=== PATIENT | male | born 1955 | race Caucasian/White ===

== ENCOUNTER 2017-04-17 12:55 | Inpatient (IN) | payer OTHER ==
[2017-04-17] VITALS (9 sets, daily range): BP systolic 165–189; BP diastolic 83–103; PULSE 54–76; RESP 16–20; TEMP 96.7–98.9; O2SAT 96–100
[~2017-04-17] VITALS: Ht 177.8 cm; Wt 100.7 kg
[2017-04-17] MEDS ORDERED: SODIUM CHLOR 0.9% 1000 ML INJ 1,000 ML IV ONE (13:02)
--- NOTE | 2017-04-17 13:08 | PD ---
HPI Chief Complaint: Altered Mental Status Time Seen by Provider: 13:02 Travel History International Travel<30 days: No Contact w/Intl Traveler<30days: No Traveled to known affect area: No History of Present Illness HPI 61-year-old male came [place] the emergency [place] unresponsive. As per EMS patient continued to remain unresponsive. He was last seen normal by his family at noon. Blood sugar was 225 en route. There was no family member upon patient's arrival to give further history. Patient was brought in with a GCS of 13. He was responding to commands but not speaking a lot. There appeared to be some left-sided weakness. He stroke alert was called. Rectal temperature was 98.5. [facility] Past Medical History Narrative Medical List of his past medical, surgical, social and family history was reviewed from the nursing note. Cardiovascular Problems: Yes Diabetes: Yes Social History Tobacco Use: No Allergies-Medications (Allergen,Severity, Reaction): Coded Allergies: No Known Allergies (Unverified , 04/17/17) Comments No known drug allergies. Reported Meds & Prescriptions Reported Meds & Active Scripts Active Reported Venlafaxine ER 24 HR (Venlafaxine HCl) 37.5 Mg Tab 37.5 Mg PO BID Amitriptyline (Amitriptyline HCl) 25 Mg Tab 25 Mg PO HS Pantoprazole (Pantoprazole Sodium) 40 Mg Tab 40 Mg PO DAILY Metoprolol Succinate ER 24 HR (Metoprolol Succinate) 50 Mg Tab 50 Mg PO DAILY Narrative Medication List of his home medications reviewed from the nursing note. Review of Systems Except as stated in HPI: all other systems reviewed are Neg Physical Exam Narrative GENERAL: Altered mental status, mostly nonverbal, obese, moderate distress SKIN: Focused skin assessment warm/dry. HEAD: Atraumatic. Normocephalic. EYES: Pupils equal and round. No scleral icterus. No injection or drainage. ENT: No nasal bleeding or discharge. Mucous membranes pink and moist. NECK: Trachea midline. No JVD. CARDIOVASCULAR: Regular rate and rhythm. No murmur appreciated. RESPIRATORY: No accessory muscle use. Clear to auscultation. Breath sounds equal bilaterally. GASTROINTESTINAL: Abdomen soft, non-tender, nondistended. Hepatic and splenic margins not palpable. MUSCULOSKELETAL: No obvious deformities. No clubbing. No cyanosis. No edema. NEUROLOGICAL: GCS of 13. No obvious cranial nerve deficits. Left-sided upper and lower extremity strength of 3 out of 5. Sensation was intact. Low volume speech. NIH stroke score of 3 PSYCHIATRIC: Appropriate mood and affect; insight and judgment normal. Data Data Last Documented VS Orders Diet Npo (04/17/17 Lunch) Activity Bed Rest (04/17/17 ) Electrocardiogram (04/17/17 ) I-Stat Creatinine (04/17/17 13:02) I-Stat Profile (04/17/17 13:02) Prothrombin Time / Inr (Pt) (04/17/17 13:02) Act Partial Throm Time (Ptt) (04/17/17 13:02) Complete Blood Count With Diff (04/17/17 13:) Fibrinogen (04/17/17 13:02) Creatine Kinase (Cpk) (04/17/17 13:02) Troponin I (04/17/17 13:02) Ua Includes Microscopic (04/17/17 13:02) Drug Screen, Random Urine (04/17/17 13:02) Type And Screen (04/17/17 13:02) Ct Brain W/O Iv Contrast(Rout) (04/17/17 ) Consult Neurology (04/17/17 ) Blood Glucose (04/17/17 13:02) Ecg Monitoring (04/17/17 13:02) Neuro Checks Q2HX12,Q4H (04/17/17 13:02) Nursing Bedside Swallow Assess .ONCE (04/17/17 13:02) Iv Access Insert/Monitor (04/17/17 13:02) NPO (04/17/17 13:02) Oximetry (04/17/17 13:02) Oxygen Administration (04/17/17 13:02) Sodium Chlor 0.9% 1000 Ml Inj (Ns 1000 M (04/17/17 13:02) Resp Oxygen Yasir C Titrat 1-4 L (04/17/17 13:02) Cath For Specimen (04/17/17 13:02) (Hub Use Only)Inp Phy Cons/Ref (04/17/17 ) Admit To Inpatient (04/17/17 ) Inpatient Certification (04/17/17 ) Diet 2000 Ada Cons Carb (04/17/17 Dinner) Diet Heart Healthy (04/17/17 Dinner) Activity Bed Rest (04/17/17 14:53) Vital Signs (Adult) ASHOK.Q4H (04/17/17 14:53) Comprehensive Metabolic Panel (04/18/17 06:00) Admit Order (Ed Use Only) (04/17/17 14:54) Potassium Chloride (Kcl) (04/17/17 15:00) Potassium Chlor 20 Meq Premix (Kcl 20 Me (04/17/17 15:00) Labs MDM Medical Decision Making Medical Screen Exam Complete: Yes Emergency Medical Condition: Yes Medical Record Reviewed: Yes Interpretation(s) Twelve-lead EKG was reviewed by me. Normal sinus rhythm, normal axis, nonspecific ST-T wave changes, first-degree AV block, bradycardia. Heart rate of 59 bpm. Differential Diagnosis CVA, intracranial bleed, electrolyte abnormality Narrative Course 2:52 PM given the fact that patient was showing some left-sided neurologic deficit I called a stroke alert. I discussed the case with the neurologist Dr. Aguilar wanted to hold off on the TPA till he arrived. When he came and examined the patient this neurologic deficit had completely disappeared. He agreed with admission for TIA. Meanwhile patient's blood test results of back and his electrolyte shows a potassium of 2.9 which I'll replace. Patient will be admitted. He'll be given aspirin. Critical Care Narrative Aggregate critical care time was 30 minutes. Time to perform other separately billable procedures was not included in the critical care time. My time did not include minutes spent treating any other patients simultaneously or on activities that did not directly contribute to the patient's treatment. The services I provided to this patient were to treat and/or prevent clinically significant deterioration that could result in: Severe hypokalemia, potassium drip I provided critical care services requiring my management, as noted below: Chart data review, documentation time, medication orders and management, vital sign assessments/reviewing monitor data, ordering and reviewing lab tests, ordering and interpreting/reviewing x-rays and diagnostic studies, care of the patient and discussion of the patient with the admitting physicians. Procedures EKG Prior to Arrival: Yes Physician Communication Physician Communication Dr. Aguilar Diagnosis Primary Impression: TIA (transient ischemic attack) Qualified Code: G45.9 - Transient cerebral ischemia, unspecified type Additional Impression: Hypokalemia Admitting Information Admitting Physician Requests: Admit Scripts Potassium Chloride Microencaps 20 Meq Tab20 Meq PO DAILY #10 TAB Prov:Richard Fisher MD 04/19/17 Pioglitazone (Actos)15 Mg Tab15 Mg PO DAILYAC #30 TAB Prov:Richard Fisher MD 04/19/17 Nifedipine ER 24 HR 30 Mg Tab30 Mg PO DAILY 30 Days Prov:Richard Fisher MD 04/19/17 Magnesium Oxide 241.3 Mg Jrc193 Mg PO Q12HR 5 Days Prov:Richard Fisher MD 04/19/17 Losartan (Cozaar)50 Mg Qge764 Mg PO DAILY 30 Days Prov:Richard Fisher MD 04/19/17 Gabapentin (Neurontin)400 Mg Lml320 Mg PO TID 30 Days Prov:Richard Fisher MD 04/19/17 Fluticasone Nasal [place] 50 Mcg/Act Naspr2 [place] NASAL DAILY 30 Days Prov:Richard Fisher MD 04/19/17 Aspirin (Aspirin Low Strength)81 Mg Chew81 Mg CHEW DAILY 30 Days Ref 10 Prov:Richard Fisher MD 04/19/17 Triston Cameron MD Apr 17, 2017 13:07 Total Creatine Kinase 72 U/L Troponin I LESS THAN 0.02 NG/ML Blood Type O POSITIVE Antibody Screen NEGATIVE Blood Bank Comment Urine Color YELLOW Urine Turbidity CLEAR Urine pH 8.0 Urine Specific [place] 1.015 Urine Protein NEG mg/dL Urine Glucose (UA) TRACE mg/dL Urine Ketones NEG mg/dL Urine Occult Blood NEG Urine Nitrite NEG Urine Bilirubin NEG Urine Urobilinogen LESS THAN 2.0 MG/DL Urine Leukocyte Esterase NEG Urine RBC LESS THAN 1 /hpf Urine WBC 1 /hpf Urine Transitional Epithelial <1 /hpf Cells Urine Hyaline Casts 1 /lpf Urine Opiates Screen NEG Urine Barbiturates Screen NEG Urine Amphetamines Screen NEG Urine Benzodiazepines Screen NEG Urine Cocaine Screen NEG Urine Cannabinoids Screen NEG [facility] Medical Decision Making Medical Screen Exam Complete: Yes Emergency Medical Condition: Yes Medical Record Reviewed: Yes Interpretation(s) Twelve-lead EKG was reviewed by me. Normal sinus rhythm, normal axis, nonspecific ST-T wave changes, first-degree AV block, bradycardia. Heart rate of 59 bpm. Differential Diagnosis CVA, intracranial bleed, electrolyte abnormality Narrative Course 2:52 PM given the fact that patient was showing some left-sided neurologic deficit I called a stroke alert. I discussed the case with the neurologist Dr. Aguilar wanted to hold off on the TPA till he arrived. When he came and examined the patient this neurologic deficit had completely disappeared. He agreed with admission for TIA. Meanwhile patient's blood test results of back and his electrolyte shows a potassium of 2.9 which I'll replace. Patient will be admitted. He'll be given aspirin. Critical Care Narrative Aggregate critical care time was 30 minutes. Time to perform other separately billable procedures was not included in the critical care time. My time did not include minutes spent treating any other patients simultaneously or on activities that did not directly contribute to the patient's treatment. The services I provided to this patient were to treat and/or prevent clinically significant deterioration that could result in: Severe hypokalemia, potassium drip I provided critical care services requiring my management, as noted below: Chart data review, documentation time, medication orders and management, vital sign assessments/reviewing monitor data, ordering and reviewing lab tests, ordering and interpreting/reviewing x-rays and diagnostic studies, care of the patient and discussion of the patient with the admitting physicians. Procedures EKG Prior to Arrival: Yes Physician Communication Physician Communication Dr. Aguilar Diagnosis Primary Impression: TIA (transient ischemic attack) Qualified Code: G45.9 - Transient cerebral ischemia, unspecified type Additional Impression: Hypokalemia Admitting Information Admitting Physician Requests: Admit Scripts Unable to Obtain Active Prescriptions or Reported Meds Triston Cameron MD Apr 17, 2017 13:07
--- NOTE | 2017-04-17 13:19 | RADRPT ---
EXAM DATE/TIME: 04/17/2017 13:11 [facility] COMPARISON: No previous studies available for comparison. INDICATIONS : Left sided weakness; slurred speech. RADIATION DOSE: 41.66 CTDIvol (mGy) This report was called by Dr. Mathew to Dr. Cameron at 1: 15 PM on 04/17/17. MEDICAL HISTORY : Non-responsive. SURGICAL HISTORY : Non-responsive. ENCOUNTER: Initial ACUITY: 1 day PAIN SCALE: Non-responsive LOCATION: cranial TECHNIQUE: Multiple contiguous axial images were obtained of the head. Using automated exposure control and adj ustment of the mA and/or kV according to patient size, radiation dose was kept as low as reasonably a chievable to obtain optimal diagnostic quality images. FINDINGS: CEREBRUM: The ventricles are normal for age. No evidence of midline shift, mass lesion, hemorrhage or acute in farction. No extra-axial fluid collections are seen. POSTERIOR FOSSA: The cerebellum and brainstem are intact. The 4th ventricle is midline. The cerebellopontine angle i s unremarkable. EXTRACRANIAL: The visualized portion of the orbits is intact. SKULL: The calvaria is intact. No evidence of skull fracture. CONCLUSION: No acute disease. Honorio Mathew MD on April 17, 2017 at 13:13 Board Certified Radiologist. This report was verified electronically.
[2017-04-17 13:21] LABS: I-STAT POTASSIUM 2.9 MMOL/L (3.5-4.9); I-STAT SODIUM 141 MMOL/L (138-146)
[2017-04-17 13:22] LABS: AUTOMATED NEUTROPHIL # 4.3 TH/MM3 (1.8-7.7); BASOPHIL % 0.3 % (0.0-2.0); EOSINOPHIL # 0.1 TH/MM3 (0-0.4); EOSINOPHIL % 0.9 % (0.0-4.0); HEMATOCRIT 37.7 % (39.0-51.0); HEMO FLAGS DIFF FINAL; LYMPH % 27.2 % (9.0-44.0); LYMPHOCYTE # 1.8 TH/MM3 (1.0-4.8); MEAN CELL VOLUME 85.8 FL (80.0-100.0); MEAN CORPUSCULAR HEMOGLOBIN 30.5 PG (27.0-34.0); MEAN CORPUSCULAR HGB CONC 35.6 % (32.0-36.0); MONO % 8.1 % (0.0-8.0); NEUT % 63.5 % (16.0-70.0); PLATELET COUNT 197 TH/MM3 (150-450); RED CELL DISTRIBUTION WIDTH 13.1 % (11.6-17.2); WHITE BLOOD COUNT 6.7 TH/MM3 (4.0-11.0)
[2017-04-17 13:31] LABS: APTT (PATIENT) 27.5 SEC (24.3-30.1); PROTHROMBIN TIME - PATIENT 10.9 SEC (9.8-11.6)
[2017-04-17 13:40] LABS: CREATINE KINASE 72 U/L (39-308)
[2017-04-17 14:03] LABS: BLOOD, URINE NEG (NEG); GLUCOSE,URINE TRACE mg/dL (NEG); HYALINE CAST, URINE 1 /lpf (RARE); KETONE, URINE NEG (NEG); NITRITE,URINE NEG (NEG); TRANSITIONAL EPI CELLS, URINE <1 /hpf; URINE COLOR YELLOW (YELLW/STRAW)
[2017-04-17 14:16] LABS: AMPHETAMINE, URINE NEG (NEG); BARBITURATES, URINE NEG (NEG); COCAINE, URINE NEG (NEG)
[2017-04-17] MEDS ORDERED: POTASSIUM CHLOR 20 MEQ PREMIX 100 ML IV ONE (15:00)
[2017-04-17] MEDS ORDERED: POTASSIUM CHLORIDE 20 MEQ CONTROLLED RELEASE TAB PO ONE (15:00)
--- NOTE | 2017-04-17 15:04 | MB ---
cc: RODERICK LANE MD DATE OF CONSULTATION: 04/17/2017 REASON FOR CONSULTATION Stroke Alert. HISTORY OF PRESENT ILLNESS Mr. Moreno is a 61-year-old male who [place] and he was found weak on the left side of his body. His called EMS. The EMS assessment was possible heat stroke with left-sided weakness and along with slurred speech it was called a Stroke Alert. Blood glucose was initially 225. Last seen normal at 12:00 p.m. He is a borderline diabetic and is hypertensive on hydrochlorothiazide/lisinopril and he is not on a blood thinner. Upon arrival the systolic blood pressure was in the 160s, no atrial fibrillation, slurred speech, weakness in the left upper and lower extremity. Initially NIH Stroke Scale was 5 by the ED physician and the stroke team. The head CT scan did not show any bleeding. Blood work revealed an INR of 1, platelet count 197, WBC 6.7, hemoglobin 13.4, potassium 2.9, BUN 13, creatinine 0.8, glucose 192, Urinalysis was unremarkable. UDS negative. On my evaluation the NIH stroke scale was 1 for slurred speech. No facial weakness was noted. No dysphasia. The patient has regained his muscle strength in the left upper and lower extremity. Hence the NIH Stroke Scale is 1 and the patient is not deemed a candidate for TPA given the recovery of symptoms and the low NIH Stroke Scale. The states that two weeks ago he was generally weak and felt dizzy when mowing the yard and gave him juice and he recovered, but she denies any focal weakness in arm or leg or disorientation or slurred speech. REVIEW OF SYSTEMS A 12-point review of systems is negative except for what is stated in the HPI. PAST MEDICAL HISTORY 1. Diabetes on no medication. 2. Hypertension. ALLERGIES No known allergies. FAMILY HISTORY Unremarkable. SOCIAL HISTORY Denies alcohol, smoking or illicit drug abuse. PHYSICAL EXAMINATION GENERAL: Awake, alert, oriented, not in apparent distress. HEENT: Atraumatic, normocephalic. Intact hearing. Intact vision. LUNGS: Clear to auscultation. No wheezes. HEART: Regular rate and rhythm. ABDOMEN: Soft. No tenderness. EXTREMITIES: No clubbing, cyanosis or edema. Moves extremities equally. NEUROLOGIC: Awake, alert, oriented. Mild dysarthria. No dysphasia. Intact memory. No facial asymmetry. Intact external ocular motility. Pupils are 2 mm bilateral, equally reacting to light. Muscle strength 5/5 bilateral and symmetrical upper and lower extremities. Sensation is intact. No sensory extinction. No visual field defects. Reflexes 2+ bilateral and symmetrical. Cerebellar signs intact bilaterally, however, left-sided [id number] is slower. DIAGNOSTIC IMAGING Head CT scan was reported with no acute intracranial abnormality. LABORATORY DATA Blood work revealed white blood cell count 6.7, hemoglobin 13.4, platelet count 197. INR 1. Sodium 131, potassium low at 2.9, BUN 13, creatinine 0.8. Total CK 72. UDS negative. DIAGNOSTIC IMPRESSION 1. Hypertensive urgency. 2. TIA. 3. Diabetes. PLAN 1. Neuro-checks q.4h. 2. MRI brain without contrast. 3. Carotid ultrasound. 4. Aspirin 81 mg. 5. DVT prophylaxis with SCDs. 6. Speech and swallow evaluation. Thank you for the opportunity to participate in the care of your patient. MD KIMBERLY Cardona/PATEL /2:26 PM /2:54 PM RAMON
--- NOTE | 2017-04-17 15:09 | EKG ---
Date Performed: 04/17/2017 Time Performed: 13:25:24 PTAGE: 61 years EKG: SINUS BRADYCARDIA WITH FIRST DEGREE AV BLOCK MINIMAL VOLTAGE CRITERIA FOR LVH, CONSIDER NOR MAL VARIANT NONSPECIFIC T-WAVE ABNORMALITY Cannot rule out inferior myocardial infarction ABNORMAL EC G NO PREVIOUS TRACING DOCTOR: Vitaliy Polo Interpretating Date/Time 04/17/2017 15:08:23
--- NOTE | 2017-04-17 16:33 | HHI.HP ---
HPI Service [place] [facility] Primary Care Physician Unknown Admission Diagnosis TIA, hypokalemia Diagnoses: Chief Complaint: Change in mental status Travel History International Travel<30 Days: No Contact w/Intl Traveler <30 Da: No Traveled to Known Affected Are: No History of Present Illness Patient is a 61-year-old right handed male with history of hypertension, borderline diabetes mellitus his, history of obstructive sleep apnea who was brought in by [facility] apparently son-in-law called [facility]. Patient was sitting when the patient was noted by family to be unresponsive. This was noted since family states that he was dozing off to sleep and then his legs were crossed. Knee dropped suddenly dropped and patient slipped down from his chair. shook him with no responded. This lasted for a couple of minutes. Then patient spontaneously woke up and started states "I can breath"" . There was no seizure episodes noted. But family reported some slurring of speech. Patient denies any fever chills headache nausea vomiting prior to or after the this incident. Patient was called in as a stroke alert and was promptly seen by Dr. Aguilar from neurology service. Initial head CT was negative. Patient is awake alert oriented 3 now and amnestic of event. Patient admitted for further evaluation and management. Review of Systems Constitutional: DENIES: Diaphoretic episodes, Fatigue, Fever, Weight gain, Weight loss, Chills, Dizziness, Change in appetite, Night Sweats Endocrine: DENIES: Heat/cold intolerance, Polydipsia, Polyuria, Polyphagia Eyes: DENIES: Blurred vision, Diplopia, Eye inflammation, Eye pain, Vision loss , Photosensitivity, Double Vision Ears, nose, mouth, throat: COMPLAINS OF: Hearing loss (hard of hearing) Respiratory: COMPLAINS OF: Apneas (history of obstructive sleep apnea) Cardiovascular: DENIES: Chest pain, Palpitations, Syncope, Dyspnea on Exertion , PND, Lower Extremity Edema, Orthopnea, Claudication Gastrointestinal: DENIES: Abdominal pain, Black stools, Bloody stools, Constipation, Diarrhea, Nausea, Vomiting, Difficulty Swallowing, Anorexia Genitourinary: DENIES: Sexual dysfunction, Urinary frequency, Urinary incontinence, Urgency, Hematuria, Dysuria, Nocturia, Penile Discharge, Testicular Pain, Testicular Swelling Musculoskeletal: COMPLAINS OF: Joint pain (chronic knee pain) Integumentary: DENIES: Abnormal pigmentation, Nail changes, Pruritus, Rash Hematologic/lymphatic: DENIES: Bruising, Lymphadenopathy Immunologic/allergic: DENIES: Eczema, Urticaria Neurologic: COMPLAINS OF: Paresthesias (complains of neuropathy) Psychiatric: DENIES: Anxiety, Confusion, Mood changes, Depression, Hallucinations, Agitation, Suicidal Ideation, Homicidal Ideation, Delusions Past Family Social History Past Medical History Hypertension Borderline diabetes type 2 Neuropathy unknown etiology History of obstructive sleep apnea on BiPAP Past Surgical History Left knee arthroscopic surgery Sinus surgery 3 Reported Medications Cozaar 100 mg/hydrochlorothiazide 25 mg daily Toprol-XL 50 mg daily Protonix 40 mg daily Gabapentin 400 mg 3 times a day Flonase nasal spray 2 sprays to each no sterile daily Allergies: Coded Allergies: No Known Allergies (Unverified , 04/17/17) Family History Noncontributory Social History Nonsmoker and nonalcohol drinker non-IV drug user Physical Exam Vital Signs Vital Signs Date Time Temp Pulse Resp B/P Pulse Ox O2 Delivery O2 Flow Rate FiO2 04/17/17 15:19 54 18 174/85 100 Nasal Cannula 2 04/17/17 13:20 18 97 Nasal Cannula 2 04/17/17 13:20 96 Nasal Cannula 2 04/17/17 13:12 63 18 170/103 97 Nasal Cannula 2 04/17/17 13:09 98 2.00 04/17/17 13:05 66 20 95 Room Air 04/17/17 13:01 98.9 76 20 165/92 99 Physical Exam GENERAL: This is a well-nourished, well-developed patient, in no apparent distress. SKIN: No rashes, ecchymoses or lesions. Cool and dry. HEAD: Atraumatic. Normocephalic. No temporal or scalp tenderness. EYES: Pupils equal round and reactive. Extraocular motions intact. No scleral icterus. No injection or drainage. ENT: Nose without bleeding, Throat without erythema, tonsillar hypertrophy or exudate. Uvula midline. Airway patent. NECK: Trachea midline. No JVD or lymphadenopathy. Supple, nontender, no meningeal signs. CARDIOVASCULAR: Regular rhythm without murmurs, gallops, or rubs. Heart rate 58 sinus RESPIRATORY: Clear to auscultation. Breath sounds equal bilaterally. No wheezes , rales, or rhonchi. GASTROINTESTINAL: Abdomen soft, non-tender, nondistended. No hepato-splenomegaly , or palpable masses. No guarding. MUSCULOSKELETAL: Extremities without clubbing, cyanosis, or edema. No joint tenderness, effusion, or edema noted. No calf tenderness. Negative Homans sign bilaterally. NEUROLOGICAL: Awake and alert. Cranial nerves II through XII intact. Motor and sensory grossly within normal limits. Five out of 5 muscle strength in all muscle groups. Normal speech. Grossly mild decreased sensation on both lower extremities. Per patient this is chronic from neuropathy Laboratory Laboratory Tests Test 04/17/17 04/17/17 13:06 13:35 White Blood Count 6.7 Red Blood Count 4.40 Hemoglobin 13.4 Bedside Hemoglobin 12.6 Hematocrit 37.7 Bedside Hematocrit 37.0 Mean Corpuscular Volume 85.8 Mean Corpuscular Hemoglobin 30.5 Mean Corpuscular Hemoglobin 35.6 Concent Red Cell Distribution Width 13.1 Platelet Count 197 Mean Platelet Volume 8.6 Neutrophils (%) (Auto) 63.5 Lymphocytes (%) (Auto) 27.2 Monocytes (%) (Auto) 8.1 Eosinophils (%) (Auto) 0.9 Basophils (%) (Auto) 0.3 Neutrophils # (Auto) 4.3 Lymphocytes # (Auto) 1.8 Monocytes # (Auto) 0.5 Eosinophils # (Auto) 0.1 Basophils # (Auto) 0.0 CBC Comment DIFF FINAL Differential Comment Prothrombin Time 10.9 Prothromb Time International 1.0 Ratio Activated Partial 27.5 Thromboplast Time Fibrinogen 280 Bedside Sodium 141 Bedside Potassium 2.9 Bedside Chloride 99 Bedside Blood Urea Nitrogen 13 Bedside Creatinine 0.8 Bedside Glucose 192 Total Creatine Kinase 72 Troponin I LESS THAN 0.02 Blood Type O POSITIVE Antibody Screen NEGATIVE Blood Bank Comment Urine Color YELLOW Urine Turbidity CLEAR Urine pH 8.0 Urine Specific [place] 1.015 Urine Protein NEG Urine Glucose (UA) TRACE Urine Ketones NEG Urine Occult Blood NEG Urine Nitrite NEG Urine Bilirubin NEG Urine Urobilinogen LESS THAN 2.0 Urine Leukocyte Esterase NEG Urine RBC LESS THAN 1 Urine WBC 1 Urine Transitional Epithelial <1 Cells Urine Hyaline Casts 1 Urine Opiates Screen NEG Urine Barbiturates Screen NEG Urine Amphetamines Screen NEG Urine Benzodiazepines Screen NEG Urine Cocaine Screen NEG Urine Cannabinoids Screen NEG Result Diagram: 04/17/17 1306 Imaging Last Impressions Head CT 04/17/17 0000 Signed Impressions: Service Date/Time: Monday, April 17, 2017 13:11 - CONCLUSION: No acute disease. Honorio Mathew MD Assessment and Plan Assessment and Plan 61-year-old male presenting with Decrease in mental status, syncopal episode with reported slurring of speech. TIA. Workup in process. Patient promptly seen by Dr. Aguilar from neurology service MRI of the brain. Will check a carotid ultrasound to the echo Doppler and place on telemetry. Neuro vital signs every 4. Check lipid panel in a.m. Hypertensive urgency. Will continue on Cozaar 100 mg daily. Will continue on Toprol-XL 50 mg daily with hold parameters. Hold off on hydrochlorothiazide for now with severe hyperkalemia. Vasotec IV when necessary for blood pressure greater than 160/90. Check chest x-ray. 12-lead EKG reviewed-no acute ST-T wave changes consider adding CCB Severe Hypokalemia. On further questioning per patient has history of hypokalemia and at one point was placed on potassium supplements. Patient denies taking [id number] medications or any herbal medications. Patient received 40 metastases by mouth potassium and 20 mEq IV. We'll check metabolic panel now including magnesium and phosphorus stat. Will check check a TSH. History of borderline diabetes mellitus. Will check fingersticks 3 times a day and at bedtime and monitor for now. Will check a hemoglobin A1c. History of neuropathy etiology unknown Will continue on Neurontin 3 times a day. History of hiatal hernia. Continue on Protonix 40 mg daily. History of allergic rhinitis. Continue on Flonase nasal spray 2 sprays to each nostril daily. History of SHIRA- instruct family to bring in his BiPAP machine for use tonight Lovenox for DVT prophylaxis. Discussed Condition With Patient and family at bedside. Physician Certification 2 Midnight Certification Type: Admission for Inpatient Services Order for Inpatient Services The services are ordered in accordance with Medicare regulations or non- Medicare payer requirements, as applicable. In the case of services not specified as inpatient-only, they are appropriately provided as inpatient services in accordance with the 2-midnight benchmark. Estimated LOS (days): 3 days is the estimated time the patient will need to remain in the hospital, assuming treatment plan goals are met and no additional complications. Post-Hospital Plan: Not yet determined Richard Fisher MD Apr 17, 2017 16:33
[2017-04-17] MEDS ORDERED: GLUCAGON 1 MG/ML VIAL OTHER PRN (16:45)
[2017-04-17] MEDS ORDERED: DEXTROSE 50% IN WATER 50 ML VIAL(D50) IV PRN (16:45)
[2017-04-17] MEDS ORDERED: ENALAPRILAT 1.25 MG/ML VIAL IV PUSH PRN (16:45)
[2017-04-17] MEDS ORDERED: PANT40TA3 PO (17:11)
[2017-04-17] MEDS ORDERED: GABA400C5 PO (17:11)
[2017-04-17] MEDS ORDERED: AMIT25TA9 PO (17:11)
[2017-04-17] MEDS ORDERED: LOSA100T2 PO (17:11)
[2017-04-17] MEDS ORDERED: VENL37.54 PO (17:11)
[2017-04-17] MEDS ORDERED: METO50TA11 PO (17:11)
--- NOTE | 2017-04-17 17:24 | RADRPT ---
EXAM DATE/TIME: 04/17/2017 16:20 [facility] COMPARISON: No previous studies available for comparison. INDICATIONS : Stroke alert MEDICAL HISTORY : None. SURGICAL HISTORY : None. ENCOUNTER: Initial ACUITY: 1 day PAIN SCORE: 0/10 LOCATION: Bilateral chest FINDINGS: A single view of the chest demonstrates the lungs to be symmetrically aerated without evidence of mas s, infiltrate or effusion. The cardiomediastinal contours are unremarkable. Osseous structures are intact. CONCLUSION: 1. No acute cardiopulmonary findings. Luis Pearson MD on April 17, 2017 at 17:19 Board Certified Radiologist. This report was verified electronically.
[2017-04-17 17:45] LABS: ALKALINE PHOSPHATASE 63 U/L (45-117); ALT (GPT) 36 U/L (12-78); ANION GAP 11 MEQ/L (5-15); AST (GOT) 19 U/L (15-37); BICARBONATE 27.2 MEQ/L (21.0-32.0); BLOOD UREA NITROGEN 13 MG/DL (7-18); CHLORIDE 104 MEQ/L (98-107); GLOMERULAR FILTRATION RATE 78 ML/MIN (>89); MAGNESIUM 1.9 MG/DL (1.5-2.5); SODIUM (NA) 142 MEQ/L (136-145); TOTAL BILIRUBIN ADULT 0.6 MG/DL (0.2-1.0)
[2017-04-17 17:50] LABS: CREATINE KINASE 72 U/L (39-308)
[2017-04-17 17:52] LABS: POTASSIUM 2.9 MEQ/L (3.5-5.1)
[2017-04-17] MEDS ORDERED: POTASSIUM PHOSPHATE INJ 30 MMOL in SODIUM CHLOR 0.9% 250 ML INJ 250 ML IV ONE ×2 (18:15→21:00)
--- NOTE | 2017-04-17 18:51 | RADRPT ---
EXAM DATE/TIME: 04/17/2017 18:08 [facility] COMPARISON: No previous studies available for comparison. INDICATIONS : Transient ischemic attack. MEDICAL HISTORY : Hypertension. Hearing loss. Apnea. Paresthesia. Neuropathy. SURGICAL HISTORY : Left knee surgery. ENCOUNTER: Initial ACUITY: 1 day PAIN SCORE: 0/10 LOCATION: Bilateral neck PEAK SYSTOLIC VELOCITIES (cm/sec): ICA/CCA RATIO: Right: 0.9 Left: 0.9 ICA: Right: 74 Left: 85 CCA: Right: 79 Left: 96 ECA: Right: 67 Left: 66 VERTEBRAL: Right: 72 antegrade Left: 58 antegrade Elevated flow velocities and ICA/CCA ratios have been found to correlate with increased degrees of vessel stenosis, calculated as percentage of diameter relative to a normal segment of distal ICA/CCA FINDINGS: RIGHT CAROTID: No significant stenosis is visualized. The waveforms are within normal limits. LEFT CAROTID: No significant stenosis is visualized. The waveforms are within normal limits. VERTEBRAL ARTERIES: Antegrade flow is seen in both vertebral arteries. MISCELLANEOUS: None. CONCLUSION: Carotid ultrasound within normal limits. No significant plaque or narrowing on either side. Bryant Zuluaga MD on April 17, 2017 at 18:48 Board Certified Radiologist. This report was verified electronically.
[2017-04-17] MEDS: ASPIRIN 81 MG CHEW TAB CHEW SCH (20:33)
[2017-04-17] MEDS: POTASSIUM CHLOR 10 MEQ PREMIX 100 ML IV SCH ×2 (20:34→22:22)
[2017-04-17] MEDS: MAGNESIUM OXIDE 400 MG TAB PO SCH (20:34)
[2017-04-17 22:12] LABS: HEMOGLOBIN Ao 83.5 %; HEMOGLOBIN LA1C 2.5 %; HEMOGLOBIN P3 3.8 %
[2017-04-18] VITALS (9 sets, daily range): BP systolic 131–162; BP diastolic 66–80; PULSE 57–66; RESP 17–20; TEMP 95.3–99.3; O2SAT 92–98
[2017-04-18] MEDS: POTASSIUM CHLOR 10 MEQ PREMIX 100 ML IV SCH (00:46)
[2017-04-18 07:52] LABS: ALKALINE PHOSPHATASE 62 U/L (45-117); ALT (GPT) 31 U/L (12-78); ANION GAP 11 MEQ/L (5-15); AST (GOT) 18 U/L (15-37); BICARBONATE 26.3 MEQ/L (21.0-32.0); BLOOD UREA NITROGEN 9 MG/DL (7-18); CHLORIDE 104 MEQ/L (98-107); GLOMERULAR FILTRATION RATE 104 ML/MIN (>89); HDL CHOLESTEROL 35.6 MG/DL (40.0-60.0); LDL CHOLESTEROL 94 MG/DL (0-99); POTASSIUM 3.6 MEQ/L (3.5-5.1); SODIUM (NA) 141 MEQ/L (136-145); TOTAL BILIRUBIN ADULT 0.6 MG/DL (0.2-1.0)
[2017-04-18] MEDS: LOSARTAN 50 MG TAB PO SCH (08:49)
[2017-04-18] MEDS: PANTOPRAZOLE SOD 40 MG DELAYED RELEASE TAB PO SCH (08:49)
[2017-04-18] MEDS: MAGNESIUM OXIDE 400 MG TAB PO SCH ×2 (08:50→22:08)
[2017-04-18] MEDS: ASPIRIN 81 MG CHEW TAB CHEW SCH (08:50)
[2017-04-18] MEDS: METOPROLOL SUCCINATE 50 MG EXTENDED RELEASE TAB PO SCH (08:50)
[2017-04-18] MEDS: FLUTICASONE PROPIONATE 50 MCG/ACT 16 GM NASAL SPRAY NASAL SCH (08:51)
[2017-04-18] MEDS ORDERED: INFLUENZA VIRUS VACCINE (QUADRIVALENT) 0.5 ML SYR IM ONE (10:00)
--- NOTE | 2017-04-18 10:28 | RADRPT ---
EXAM DATE/TIME: 04/18/2017 10:15 [facility] COMPARISON: CHEST SINGLE AP, April 17, 2017, 16:20. INDICATIONS : Clear for MRI. MEDICAL HISTORY : None. SURGICAL HISTORY : None. ENCOUNTER: Initial ACUITY: 1 day PAIN SCORE: 0/10 LOCATION: Bilateral Orbits FINDINGS: Limited examination of the orbits was performed. There is no evidence of fracture involving the bony structures surrounding the orbits. The maxillary sinuses appear to be well aerated. No radiopaque foreign bodies are seen in the soft tissues. CONCLUSION: 1. No metallic foreign bodies identified. Patient is cleared for MRI. Luis Pearson MD on April 18, 2017 at 10:26 Board Certified Radiologist. This report was verified electronically.
--- NOTE | 2017-04-18 11:26 | HHI.PR ---
Subjective Remarks had a good night- no complains went for MRI Objective Vitals Vital Signs Date Time Temp Pulse Resp B/P Pulse Ox O2 Delivery O2 Flow Rate FiO2 04/18/17 08:00 96.3 66 20 155/80 94 04/18/17 04:58 99.3 65 20 155/78 96 04/18/17 00:58 94 21 04/18/17 00:18 99.0 61 20 151/74 97 04/17/17 22:34 59 04/17/17 20:20 97.3 60 20 165/83 97 04/17/17 17:44 96.7 57 16 188/87 98 04/17/17 17:13 58 20 189/88 99 Nasal Cannula 2 04/17/17 15:19 54 18 174/85 100 Nasal Cannula 2 04/17/17 13:20 18 97 Nasal Cannula 2 04/17/17 13:20 96 Nasal Cannula 2 04/17/17 13:20 96 Nasal Cannula 2.00 04/17/17 13:12 63 18 170/103 97 Nasal Cannula 2 04/17/17 13:09 98 2.00 04/17/17 13:05 66 20 95 Room Air 04/17/17 13:01 98.9 76 20 165/92 99 I/O 04/17/17 04/17/17 04/17/17 04/18/17 04/18/17 04/18/17 07:00 15:00 23:00 07:00 15:00 23:00 Intake Total 1171 ml Output Total 1400 ml 700 ml 1000 ml Balance -1400 ml 471 ml -1000 ml Intake IV Total 1171 ml Output Urine Total 1400 ml 700 ml 1000 ml Result Diagram: 04/17/17 1306 04/18/17 0642 Imaging Last Impressions Orbit X-Ray 04/18/17 0000 Signed Impressions: Service Date/Time: Tuesday, April 18, 2017 10:15 - CONCLUSION: 1. No metallic foreign bodies identified. Patient is cleared for MRI. Luis Pearson MD Head CT 04/17/17 0000 Signed Impressions: Service Date/Time: Monday, April 17, 2017 13:11 - CONCLUSION: No acute disease. Honorio Mathew MD Chest X-Ray 04/17/17 0000 Signed Impressions: Service Date/Time: Monday, April 17, 2017 16:20 - CONCLUSION: 1. No acute cardiopulmonary findings. Luis Pearson MD Carotid Artery Ultrasound 04/17/17 0000 Signed Impressions: Service Date/Time: Monday, April 17, 2017 18:08 - CONCLUSION: Carotid ultrasound within normal limits. No significant plaque or narrowing on either side. Bryant Zuluaga MD Objective Remarks awake and alert, NAD anicteric lungs clear regular rhythm abdomen soft, nontender extremities no edema neuro exam-unremarkable Assessment to: Remove Date of Removal: Apr 18, 2017 A/P Assessment and Plan 61-year-old male presenting with Decrease in mental status, syncopal episode with reported slurring of speech.- possible TIA. Workup in progress. Patient promptly seen by Dr. Aguilar from neurology service MRI of the brain- pending .work up in progress Neuro vital signs every 4. lipid panel - pending check EEG Hypertensive urgency.- better readings but not ideal Will continue on Cozaar 100 mg daily. Will continue on Toprol-XL 50 mg daily with hold parameters. Add CCB Procardia 30 mf XL daily Hold off on hydrochlorothiazide for now with severe hypokalemia. Vasotec IV when necessary for blood pressure greater than 160/90. CXR reviewed by me- unremarkable. 12-lead EKG reviewed-no acute ST-T wave changes Severe Hypokalemia - improved Hypophosphatemia- replaced- recheck P04 now History of borderline diabetes mellitus. Will check fingersticks 3 times a day and at bedtime and monitor for now. History of neuropathy etiology unknown Will continue on Neurontin 3 times a day. History of hiatal hernia. Continue on Protonix 40 mg daily. History of allergic rhinitis. Continue on Flonase nasal spray 2 sprays to each nostril daily. History of SHIRA- instruct family to bring in his BiPAP machine for use t Lovenox for DVT prophylaxis. PT/OT consult Richard Fisher MD Apr 18, 2017 11:26
[2017-04-18] MEDS: GABAPENTIN 400 MG CAP PO SCH ×2 (11:57→17:21)
[2017-04-18] MEDS: POTASSIUM CHLORIDE 20 MEQ CONTROLLED RELEASE TAB PO SCH (12:14)
[2017-04-18] MEDS: NIFEdipine 30 MG SUSTAINED RELEASE TAB PO SCH (12:14)
--- NOTE | 2017-04-18 13:12 | RADRPT ---
EXAM DATE/TIME: 04/18/2017 10:52 [facility] COMPARISON: No previous studies available for comparison. INDICATIONS : Syncope with left sided weakness. MEDICAL HISTORY : Hypertension. Diabetes mellitus type 2. SURGICAL HISTORY : knee arthroscopy, sinus surgery ENCOUNTER: Subsequent ACUITY: 1 day PAIN SCORE: 0/10 LOCATION: cranial TECHNIQUE: Multiplanar, multisequence MRI of the brain was performed without contrast. FINDINGS: CEREBRUM: The ventricles are normal for age. No evidence of midline shift, mass lesion, hemorrhage or acute in farction. No extraaxial fluid collections are seen. The pituitary gland and suprasellar cistern are normal in configuration. WHITE MATTER: No significant signal abnormalities are seen in the white matter. POSTERIOR FOSSA: The cerebellum and brainstem are intact. The 4th ventricle is midline. The cerebellopontine angle is unremarkable. The cerebellar tonsils are normal in position. DIFFUSION IMAGING: No focal areas of restricted diffusion are seen. No evidence of acute infarction. EXTRACRANIAL: The visualized portions of the orbits and paranasal sinuses are unremarkable. CONCLUSION: Normal examination. No evidence of acute infarct, hemorrhage, mass or edema. Ramiro Salmon MD on April 18, 2017 at 13:08 Board Certified Radiologist. This report was verified electronically.
--- NOTE | 2017-04-18 14:16 | MG ---
cc: RUBY DEGROOT M.D., ALFEA M. M.D. Lab No: [id number] Date:04/18/2017 Age: 61 Sex: M Race: DATE OF : 1955 61 REFERRING PHYSICIAN Phillip. HISTORY: This is a stat study at 1:00 o'clock in room 1525. CT negative. MRI taken but no report. HISTORY OF PRESENT ILLNESS: This is a 61-year-old man a stroke alert found unresponsive with left-sided weakness, slurred speech with a change in mental status. Episode of numbness, history of borderline diabetes, hypertension, sleep apnea, neuropathy on Neurontin, Cozaar, Protonix, Toprol, magnesium aspirin, Vasotec. DESCRIPTION OF RECORD: There is some mild slowing predominately 6 Hz theta frequency noted. Lower amplitude noted that he is asleep, snoring. Mostly theta frequency. EKG looks like possible arrhythmia as difficult to tell. There is no epileptiform features. There is a mild driving response with photic stimulation. IMPRESSION Mildly slow EEG consistent with likely a mild encephalopathy no epileptic activity. MD ELIZABETH Acevedo/immanuel /2:03 PM /2:15 PM
--- NOTE | 2017-04-18 16:36 | ECHRPT ---
Indication: CVA/TIA CONCLUSIONS Normal left ventricular size. Mild concentric left ventricular hypertrophy. The left ventricular systolic function is normal with an estimated ejection fraction in the range of 55-60%. Trace mitral valve regurgitation. Mild mitral annular calcification. There is trace tricuspid valve regurgitation. There is estimated mild pulmonary hypertension present (43 mmHg). BP: 188 / 87 HR: 98 Rhythm: Sinus MEASUREMENTS (Male / Female) Normal Values Technical Quality:Good 2D ECHO LV Diastolic Diameter PLAX 4.6 cm 4.2 - 5.9 / 3.9 - 5.3 cm LV Systolic Diameter PLAX 3.2 cm IVS Diastolic Thickness 0.9 cm 0.6 - 1.0 / 0.6 - 0.9 cm LVPW Diastolic Thickness 0.8 cm 0.6 - 1.0 / 0.6 - 0.9 cm LV Relative Wall Thickness 0.4 RV Internal Dim ED PLAX 2.2 cm LA Systolic Diameter LX 3.5 cm 3.0 - 4.0 / 2.7 - 3.8 cm M-MODE Aortic Root Diameter MM 3.3 cm AV Cusp Separation MM 2.3 cm DOPPLER Mitral E Point Velocity 71.1 cm/s Mitral A Point Velocity 77.5 cm/s Mitral E to A Ratio 0.9 LV E' Lateral Velocity 9.7 cm/s Mitral E to LV E' Lateral Ratio 7.4 LV E' Septal Velocity 8.2 cm/s Mitral E to LV E' Septal Ratio 8.7 TR Peak Velocity 288.0 cm/s TR Peak Gradient 33.2 mmHg FINDINGS LEFT VENTRICLE Normal left ventricular size. Mild concentric left ventricular hypertrophy. The left ventricular systolic function is normal with an estimated ejection fraction in the range of 55-60%. RIGHT VENTRICLE Normal right ventricular size and systolic function. LEFT ATRIUM The left atrial size is normal. RIGHT ATRIUM The right atrial size is normal. ATRIAL SEPTUM Normal atrial septal thickness without atrial level shunting by limited color doppler interrogation. AORTA The aortic root and proximal ascending aorta are normal in size on limited imaging. MITRAL VALVE Trace mitral valve regurgitation. Mild mitral annular calcification. AORTIC VALVE Trileaflet aortic valve. No aortic valve stenosis or regurgitation. TRICUSPID VALVE There is trace tricuspid valve regurgitation. There is estimated mild pulmonary hypertension present (43 mmHg). PULMONARY VALVE The pulmonary valve is not well visualized. VESSELS The inferior vena cava is normal in size. PERICARDIUM No pericardial effusion. OTHER FINDINGS No source of embolism appreciated Brittany Baer MD, FACC (Electronically Signed) Final Date:18 April 2017 16:35
--- NOTE | 2017-04-18 16:52 | HHI.PR ---
Review/Management Diagnosis 1. Hypertensive urgency. 2. TIA. 3. Diabetes. 4. Electrolyte imbalance, resolved Plan - Neurologic exam is non-focal - Neurologic tests are unremarkable - MRA head - Aspirin 81 mg. - DVT prophylaxis with SCDs. - I explained to the family at bed side the current neurologic status and plan of care Diagnosis/Plan: Subjective Subjective Comments Patient was witnessed with right facial drooping, UE shaking, and twitches of the right hand, during the episode he was awake, aware, able to hear and see, however, unable to respond, no reported foaming, tongue biting or loss of sphincter control Patient has complete recall of the episode Lasted about 10 minutes as per A STAT EEG did not reveal an ictal activity, but for an encephalopathic pattern MRI brain revealed no acute intracranial abnormality Cardiac ECHO revealed EF 55-60% CUS is unremarkable for a significant stenosis Active Medications Current Medications Medications (Trade) Dose Ordered Sig/Yasmeen Route Start Time Stop Time Status Last Admin (Cozaar) 100 mg DAILY PO 04/18/17 09:00 04/18/17 08:49 (Aspirin Chew) 81 mg DAILY CHEW 04/17/17 17:15 04/18/17 08:50 (Protonix) 40 mg DAILY PO 04/18/17 09:00 04/18/17 08:49 (Toprol Xl) 50 mg DAILY PO 04/18/17 09:00 04/18/17 08:50 (Vasotec Inj) 1.25 mg Q6H PRN IV PUSH 04/17/17 16:45 04/18/17 11:58 (D50w (Vial) Inj) 50 ml UNSCH PRN IV 04/17/17 16:45 (Glucagon Inj) 1 mg UNSCH PRN OTHER 04/17/17 16:45 (Flonase Yasir Spr) 2 spray DAILY NASAL 04/18/17 09:00 (Mag-Ox) 400 mg Q12HR PO 04/17/17 21:00 04/18/17 08:50 (Procardia Xl) 30 mg DAILY PO 04/18/17 12:00 04/18/17 12:14 (KCl) 20 meq DAILY PO 04/18/17 12:00 04/18/17 12:14 (Effexor Xr) 37.5 mg BID PO 04/18/17 21:00 (Neurontin) 400 mg TID PO 04/18/17 13:00 04/18/17 11:57 Allergies Allergies Coded Allergies No Known Allergies (Unverified04/17/17) Exam I&O / VS 04/17/17 04/17/17 04/18/17 15:00 23:00 07:00 Intake Total 1171 ml Output Total 1400 ml 700 ml Balance -1400 ml 471 ml IV Total 1171 ml Output Urine Total 1400 ml 700 ml Vital Signs Date Time Temp Pulse Resp B/P Pulse Ox O2 Delivery O2 Flow Rate FiO2 04/18/17 16:04 98.5 61 20 131/66 96 04/18/17 14:46 92 21 04/18/17 12:00 95.3 57 20 162/78 98 04/18/17 10:20 61 04/18/17 08:00 96.3 66 20 155/80 94 04/18/17 04:58 99.3 65 20 155/78 96 04/18/17 00:58 94 21 04/18/17 00:18 99.0 61 20 151/74 97 04/17/17 22:34 59 04/17/17 20:20 97.3 60 20 165/83 97 04/17/17 17:44 96.7 57 16 188/87 98 04/17/17 17:13 58 20 189/88 99 Nasal Cannula 2 Exam Comments GENERAL: Awake, alert, oriented, not in apparent distress. HEENT: Atraumatic, normocephalic. Intact hearing. Intact vision. LUNGS: Clear to auscultation. No wheezes. HEART: Regular rate and rhythm. ABDOMEN: Soft. No tenderness. EXTREMITIES: No clubbing, cyanosis or edema. Moves extremities equally. NEUROLOGIC: Awake, alert, oriented. No dysarthria. No dysphasia. Intact memory. No facial asymmetry. Intact external ocular motility. Pupils are 2 mm bilateral, equally reacting to light. Muscle strength 5/5 bilateral and symmetrical upper and lower extremities. Sensation is intact. No sensory extinction. No visual field defects. Reflexes 2+ bilateral and symmetrical. Cerebellar signs are intact b/l Objective Radiology Results Last 72 hours Impressions Orbit X-Ray 04/18/17 0000 Signed Impressions: Service Date/Time: Tuesday, April 18, 2017 10:15 - CONCLUSION: 1. No metallic foreign bodies identified. Patient is cleared for MRI. Luis Pearson MD Head Magnetic Resonance Angiography 04/18/17 0000 Signed Impressions: Service Date/Time: Tuesday, April 18, 2017 18:48 - CONCLUSION: Mild and short segment narrowing of the right posterior cerebral artery as above. Otherwise normal. Bryant Zuluaga MD Brain MRI 04/18/17 0000 Signed Impressions: Service Date/Time: Tuesday, April 18, 2017 10:52 - CONCLUSION: Normal examination. No evidence of acute infarct, hemorrhage, mass or edema. Ramiro Salmon MD Head CT 04/17/17 0000 Signed Impressions: Service Date/Time: Monday, April 17, 2017 13:11 - CONCLUSION: No acute disease. Honorio Mathew MD Chest X-Ray 04/17/17 0000 Signed Impressions: Service Date/Time: Monday, April 17, 2017 16:20 - CONCLUSION: 1. No acute cardiopulmonary findings. Luis Pearson MD Carotid Artery Ultrasound 04/17/17 0000 Signed Impressions: Service Date/Time: Monday, April 17, 2017 18:08 - CONCLUSION: Carotid ultrasound within normal limits. No significant plaque or narrowing on either side. Bryant Zuluaga MD Micro and Labs Laboratory Tests Test 04/18/17 06:42 Sodium Level 141 Potassium Level 3.6 Chloride Level 104 Carbon Dioxide Level 26.3 Anion Gap 11 Blood Urea Nitrogen 9 Creatinine 0.76 Estimat Glomerular Filtration 104 Rate Random Glucose 138 Calcium Level 7.8 Phosphorus Level 3.6 Total Bilirubin 0.6 Aspartate Amino Transf 18 (AST/SGOT) Alanine Aminotransferase 31 (ALT/SGPT) Alkaline Phosphatase 62 Total Protein 6.2 Albumin 3.2 Triglycerides Level 163 Cholesterol Level 162 LDL Cholesterol 94 HDL Cholesterol 35.6 Cholesterol/HDL Ratio 4.55 Toby Aguilar MD Apr 18, 2017 16:52
[2017-04-18] MEDS ORDERED: LORazepam 2 MG/ML VIAL IV PUSH ONE (18:00)
--- NOTE | 2017-04-18 20:08 | RADRPT ---
EXAM DATE/TIME: 04/18/2017 18:48 [facility] COMPARISON: MRI BRAIN W/O CONTRAST, April 18, 2017, 10:52. US CAROTID ARTERIES, April 17, 2017, 18:08. CT BRAIN W /O CONTRAST, April 17, 2017, 13:11. INDICATIONS : TIA. MEDICAL HISTORY : Hypertension. Diabetes mellitus type 2. SURGICAL HISTORY : Knee arthroscopy, sinus surgery. ENCOUNTER: Subsequent ACUITY: 1 day PAIN SCORE: 0/10 LOCATION: cranial Please note a normal MRA of the brain does not entirely exclude the possibility of a small aneurysm, nor the possibility of distal intracranial vessel disease. TECHNIQUE: 3D time of flight MRA was performed. Source images, multiplanar STS MIP, and 3D volume MIP reconstru ctions were reviewed. FINDINGS: Less than 3 mm long luminal irregularity with mild stenosis seen proximal P2 segment of the right pos terior cerebral artery. This is likely on the basis of intracranial atherosclerosis. There is normal filling downstream. Otherwise normal caliber intracranial arteries. No aneurysm. CONCLUSION: Mild and short segment narrowing of the right posterior cerebral artery as above. Otherwise normal. Bryant Zuluaga MD on April 18, 2017 at 20:04 Board Certified Radiologist. This report was verified electronically.
[2017-04-18] MEDS ORDERED: GABAPENTIN 400 MG CAP PO SCH (21:00)
[2017-04-18] MEDS: VENLAFAXINE HCL XR 37.5 MG CAP PO SCH (22:08)
[2017-04-18] MEDS: AMITRIPTYLINE HCL 25 MG TAB PO SCH (22:08)
[2017-04-19] VITALS (8 sets, daily range): BP systolic 127–136; BP diastolic 65–76; PULSE 52–68; RESP 16–20; TEMP 96.2–98.2; O2SAT 94–99
[2017-04-19] MEDS: MAGNESIUM OXIDE 400 MG TAB PO SCH ×2 (09:00→21:00)
[2017-04-19] MEDS ORDERED: PANTOPRAZOLE SOD 40 MG DELAYED RELEASE TAB PO SCH (09:00)
[2017-04-19] MEDS: FLUTICASONE PROPIONATE 50 MCG/ACT 16 GM NASAL SPRAY NASAL SCH (09:00)
[2017-04-19 09:21] LABS: BICARBONATE 24.9 MEQ/L (21.0-32.0); POTASSIUM 3.5 MEQ/L (3.5-5.1)
[2017-04-19] MEDS: PANTOPRAZOLE SOD 40 MG DELAYED RELEASE TAB PO SCH (09:23)
[2017-04-19] MEDS: GABAPENTIN 400 MG CAP PO SCH ×3 (09:24→17:58)
[2017-04-19] MEDS: VENLAFAXINE HCL XR 37.5 MG CAP PO SCH ×2 (09:24→21:20)
[2017-04-19] MEDS: NIFEdipine 30 MG SUSTAINED RELEASE TAB PO SCH (09:24)
[2017-04-19] MEDS: POTASSIUM CHLORIDE 20 MEQ CONTROLLED RELEASE TAB PO SCH (09:25)
[2017-04-19] MEDS: LOSARTAN 50 MG TAB PO SCH (09:26)
[2017-04-19] MEDS: METOPROLOL SUCCINATE 50 MG EXTENDED RELEASE TAB PO SCH (09:27)
[2017-04-19] MEDS: ASPIRIN 81 MG CHEW TAB CHEW SCH (09:27)
[2017-04-19] MEDS ORDERED: metFORMIN HCL 500 MG TAB PO SCH (13:45)
--- NOTE | 2017-04-19 14:06 | HHI.PR ---
Subjective Remarks patient doing great no headachens nausea or vomiting, weakness or Objective Vitals Vital Signs Date Time Temp Pulse Resp B/P Pulse Ox O2 Delivery O2 Flow Rate FiO2 04/19/17 12:50 96.2 59 20 127/65 94 04/19/17 11:39 95 04/19/17 08:42 96.6 66 20 136/75 95 04/19/17 08:00 52 04/19/17 05:45 97.7 64 20 128/68 99 04/19/17 00:00 98.1 68 18 130/75 96 04/18/17 20:00 98.7 65 17 133/72 95 04/18/17 16:04 98.5 61 20 131/66 96 04/18/17 14:46 92 21 I/O 04/18/17 04/18/17 04/18/17 04/19/17 04/19/17 04/19/17 06:59 14:59 22:59 06:59 14:59 22:59 Intake Total 1171 ml 480 ml 650 ml 900 ml Output Total 700 ml 2000 ml Balance 471 ml -1520 ml 650 ml 900 ml Intake Oral 480 ml 650 ml 900 ml IV Total 1171 ml Output Urine Total 700 ml 2000 ml # Voids 2 2 # Bowel Movements 0 0 0 Result Diagram: 04/17/17 1306 04/19/17 0803 Imaging Last Impressions Orbit X-Ray 04/18/17 0000 Signed Impressions: Service Date/Time: Tuesday, April 18, 2017 10:15 - CONCLUSION: 1. No metallic foreign bodies identified. Patient is cleared for MRI. Luis Pearson MD Head Magnetic Resonance Angiography 04/18/17 0000 Signed Impressions: Service Date/Time: Tuesday, April 18, 2017 18:48 - CONCLUSION: Mild and short segment narrowing of the right posterior cerebral artery as above. Otherwise normal. Bryant Zuluaga MD Brain MRI 04/18/17 0000 Signed Impressions: Service Date/Time: Tuesday, April 18, 2017 10:52 - CONCLUSION: Normal examination. No evidence of acute infarct, hemorrhage, mass or edema. Ramiro Salmon MD Head CT 04/17/17 0000 Signed Impressions: Service Date/Time: Monday, April 17, 2017 13:11 - CONCLUSION: No acute disease. Honorio Mathew MD Chest X-Ray 04/17/17 0000 Signed Impressions: Service Date/Time: Monday, April 17, 2017 16:20 - CONCLUSION: 1. No acute cardiopulmonary findings. Luis Pearson MD Carotid Artery Ultrasound 04/17/17 0000 Signed Impressions: Service Date/Time: Monday, April 17, 2017 18:08 - CONCLUSION: Carotid ultrasound within normal limits. No significant plaque or narrowing on either side. Bryant Zuluaga MD Objective Remarks awake and alert, NAD anicteric lungs clear regular rhythm abdomen soft, nontender extremities no edema neuro exam-unremarkable Date of Removal: Apr 18, 2017 A/P Assessment and Plan 61-year-old male presenting with Decrease in mental status, syncopal episode with reported slurring of speech.- possible TIA. - RESOLved MRI/MRA unremarkable. ECho novalvular deformity. Carotid US- no significant stenosis EEG no epileptiform activity ASA Hypertensive urgency.- improved Will continue on Cozaar 100 mg daily. Will continue on Toprol-XL 50 mg daily with hold parameters. Add CCB Procardia 30 mf XL daily DC hydrochlorothiazide for now with severe hypokalemia. CXR reviewed by me- unremarkable. 12-lead EKG reviewed-no acute ST-T wave changes Severe Hypokalemia - improved Hypophosphatemia- replaced- recheck P04 now History of borderline diabetes mellitus. A1C 7.0 as OP- was on Metformin at one point but had adverse GI reactions STart Actos 15 mg po daily and monitor blood sugars- per and patient they have supplies. d./w them goals HYpertriglyceridemia -dietitian consult for cousnelling History of neuropathy etiology-likely DM nephropathy Will continue on Neurontin 3 times a day. History of hiatal hernia. Continue on Protonix 40 mg daily. History of allergic rhinitis. Continue on Flonase nasal spray 2 sprays to each nostril daily. History of SHIRA- instruct family to bring in his BiPAP machine for use t Lovenox for DVT prophylaxis. DC today if cleared with Dr Aguilar OP ff up with PCP in [place] OP ff up with Neurology in [place]- Dr. Aguilar told them that he will give them a neurologist to ff up with there Richard Fisher MD Apr 19, 2017 14:06
[2017-04-19] MEDS ORDERED: COZA50TA PO (14:11)
[2017-04-19] MEDS ORDERED: FLUT50SP NASAL (14:11)
[2017-04-19] MEDS ORDERED: MAGN400T3 PO (14:11)
[2017-04-19] MEDS ORDERED: NEUR400C PO (14:11)
[2017-04-19] MEDS ORDERED: ASPI81CH25 CHEW (14:11)
[2017-04-19] MEDS ORDERED: NIFE30TA8 PO (14:11)
[2017-04-19] MEDS ORDERED: POTA20TA5 PO (14:14)
[2017-04-19] MEDS ORDERED: ACTO15TA11 PO (14:14)
[2017-04-19] MEDS: AMITRIPTYLINE HCL 25 MG TAB PO SCH (21:20)
[2017-04-20 00:30] VITALS: BP 125/69; PULSE 64; RESP 17; TEMP 98.1; O2SAT 95
[2017-04-20 05:30] VITALS: BP 118/70; PULSE 60; RESP 18; TEMP 97; O2SAT 97
[2017-04-20 08:00] VITALS: PULSE 48
[2017-04-20] MEDS ORDERED: PIOGLITAZONE HCL 15 MG TAB PO SCH (08:00)
[2017-04-20 08:09] VITALS: BP 134/81; PULSE 53; RESP 18; TEMP 95.5; O2SAT 96
[2017-04-20] MEDS: POTASSIUM CHLORIDE 20 MEQ CONTROLLED RELEASE TAB PO SCH (08:27)
[2017-04-20] MEDS: ASPIRIN 81 MG CHEW TAB CHEW SCH (08:28)
[2017-04-20] MEDS: VENLAFAXINE HCL XR 37.5 MG CAP PO SCH (08:28)
[2017-04-20] MEDS: GABAPENTIN 400 MG CAP PO SCH ×2 (08:29→13:22)
[2017-04-20] MEDS: LOSARTAN 50 MG TAB PO SCH (08:29)
[2017-04-20] MEDS: PANTOPRAZOLE SOD 40 MG DELAYED RELEASE TAB PO SCH (08:30)
[2017-04-20] MEDS: NIFEdipine 30 MG SUSTAINED RELEASE TAB PO SCH (08:30)
[2017-04-20] MEDS: MAGNESIUM OXIDE 400 MG TAB PO SCH (08:31)
[2017-04-20] MEDS: FLUTICASONE PROPIONATE 50 MCG/ACT 16 GM NASAL SPRAY NASAL SCH (08:31)
[2017-04-20] MEDS: METOPROLOL SUCCINATE 50 MG EXTENDED RELEASE TAB PO SCH (08:32)
[2017-04-20] MEDS ORDERED: metFORMIN HCL 500 MG TAB PO SCH (09:00)
--- NOTE | 2017-04-20 09:18 | HHI.PR ---
Review/Management Diagnosis 1. Hypertensive urgency. 2. TIA. 3. Diabetes. 4. Electrolyte imbalance, resolved Plan - Neurologic exam is non-focal - Neurologic tests are unremarkable - Aspirin 81 mg. - May consider cardiac monitoring as outpatient - He will follow with outpatient neurology in [place], [place], I provided him with names of neurologists - I explained to the family at bed side the current neurologic status and plan of care - Please call for questions Diagnosis/Plan: Subjective Subjective Comments No acute events reported No new complaints Stable neurologic status EEG is unremarkable MRA head revealed intracranial stenoses Cardiac ECHO EF 55-60% CUS is unremarkable MRI brain with no acute abnormality Active Medications Current Medications Medications (Trade) Dose Ordered Sig/Yasmeen Route Start Time Stop Time Status Last Admin (Cozaar) 100 mg DAILY PO 04/18/17 09:00 04/20/17 08:29 (Aspirin Chew) 81 mg DAILY CHEW 04/17/17 17:15 04/20/17 08:28 (Protonix) 40 mg DAILY PO 04/18/17 09:00 04/20/17 08:30 (Toprol Xl) 50 mg DAILY PO 04/18/17 09:00 04/19/17 09:27 (Vasotec Inj) 1.25 mg Q6H PRN IV PUSH 04/17/17 16:45 04/18/17 11:58 (D50w (Vial) Inj) 50 ml UNSCH PRN IV 04/17/17 16:45 (Glucagon Inj) 1 mg UNSCH PRN OTHER 04/17/17 16:45 (Flonase Yasir Spr) 2 spray DAILY NASAL 04/18/17 09:00 04/20/17 08:31 (Mag-Ox) 400 mg Q12HR PO 04/17/17 21:00 04/20/17 08:31 (Procardia Xl) 30 mg DAILY PO 04/18/17 12:00 04/20/17 08:30 (KCl) 20 meq DAILY PO 04/18/17 12:00 04/20/17 08:27 (Effexor Xr) 37.5 mg BID PO 04/18/17 21:00 04/20/17 08:28 (Neurontin) 400 mg TID PO 04/18/17 13:00 04/20/17 08:29 (Elavil) 25 mg HS PO 04/18/17 21:00 04/19/17 21:20 (Actos) 15 mg DAILYAC PO 04/20/17 08:00 04/20/17 08:00 Allergies Allergies Coded Allergies No Known Allergies (Unverified04/17/17) Exam I&O / VS 04/19/17 04/19/17 04/20/17 15:00 23:00 07:00 Intake Total 1000 ml 1000 ml Balance 1000 ml 1000 ml Intake Oral 1000 ml 1000 ml # Voids 2 3 # Bowel Movements 0 0 Vital Signs Date Time Temp Pulse Resp B/P Pulse Ox O2 Delivery O2 Flow Rate FiO2 04/20/17 08:09 95.5 53 18 134/81 96 04/20/17 05:30 97.0 60 18 118/70 97 04/20/17 00:30 98.1 64 17 125/69 95 04/19/17 20:00 98.2 62 16 129/76 94 04/19/17 16:18 98.2 62 20 133/72 95 04/19/17 12:50 96.2 59 20 127/65 94 04/19/17 11:39 95 Exam Comments GENERAL: Awake, alert, oriented, not in apparent distress. HEENT: Atraumatic, normocephalic. Intact hearing. Intact vision. LUNGS: Clear to auscultation. No wheezes. HEART: Regular rate and rhythm. ABDOMEN: Soft. No tenderness. EXTREMITIES: No clubbing, cyanosis or edema. Moves extremities equally. NEUROLOGIC: Awake, alert, oriented. No dysarthria. No dysphasia. Intact memory. No facial asymmetry. Intact external ocular motility. Pupils are 2 mm bilateral, equally reacting to light. Muscle strength 5/5 bilateral and symmetrical upper and lower extremities. Sensation is intact. No sensory extinction. No visual field defects. Reflexes 2+ bilateral and symmetrical. Cerebellar signs are intact b/l Objective Radiology Results Last 72 hours Impressions Orbit X-Ray 04/18/17 0000 Signed Impressions: Service Date/Time: Tuesday, April 18, 2017 10:15 - CONCLUSION: 1. No metallic foreign bodies identified. Patient is cleared for MRI. Luis Pearson MD Head Magnetic Resonance Angiography 04/18/17 0000 Signed Impressions: Service Date/Time: Tuesday, April 18, 2017 18:48 - CONCLUSION: Mild and short segment narrowing of the right posterior cerebral artery as above. Otherwise normal. Bryant Zuluaga MD Brain MRI 04/18/17 0000 Signed Impressions: Service Date/Time: Tuesday, April 18, 2017 10:52 - CONCLUSION: Normal examination. No evidence of acute infarct, hemorrhage, mass or edema. Ramiro Salmon MD Ossi,Toby Garcia MD Apr 20, 2017 09:17
[2017-04-20 10:38] VITALS: O2SAT 97
[2017-04-20 12:16] VITALS: BP 121/79; PULSE 59; RESP 18; TEMP 97.1; O2SAT 95
--- NOTE | 2017-04-20 12:26 | HHI.PR ---
Subjective Remarks seen with at bedsdie no complains of headaches, nausea or vomiting, no weakness, no pain speech spontaneous Objective Vitals Vital Signs Date Time Temp Pulse Resp B/P Pulse Ox O2 Delivery O2 Flow Rate FiO2 04/20/17 12:16 97.1 59 18 121/79 95 04/20/17 10:38 97 21 04/20/17 08:09 95.5 53 18 134/81 96 04/20/17 05:30 97.0 60 18 118/70 97 04/20/17 00:30 98.1 64 17 125/69 95 04/19/17 20:00 98.2 62 16 129/76 94 04/19/17 16:18 98.2 62 20 133/72 95 04/19/17 12:50 96.2 59 20 127/65 94 I/O 04/19/17 04/19/17 04/19/17 04/20/17 04/20/17 04/20/17 07:00 15:00 23:00 07:00 15:00 23:00 Intake Total 900 ml 1000 ml 1000 ml Balance 900 ml 1000 ml 1000 ml Intake Oral 900 ml 1000 ml 1000 ml # Voids 2 2 3 # Bowel Movements 0 0 0 Result Diagram: 04/17/17 1306 04/19/17 0803 Imaging Last Impressions Orbit X-Ray 04/18/17 0000 Signed Impressions: Service Date/Time: Tuesday, April 18, 2017 10:15 - CONCLUSION: 1. No metallic foreign bodies identified. Patient is cleared for MRI. Luis Pearson MD Head Magnetic Resonance Angiography 04/18/17 0000 Signed Impressions: Service Date/Time: Tuesday, April 18, 2017 18:48 - CONCLUSION: Mild and short segment narrowing of the right posterior cerebral artery as above. Otherwise normal. Bryant Zuluaga MD Brain MRI 04/18/17 0000 Signed Impressions: Service Date/Time: Tuesday, April 18, 2017 10:52 - CONCLUSION: Normal examination. No evidence of acute infarct, hemorrhage, mass or edema. Ramiro Salmon MD Head CT 04/17/17 0000 Signed Impressions: Service Date/Time: Monday, April 17, 2017 13:11 - CONCLUSION: No acute disease. Honorio Mathew MD Chest X-Ray 04/17/17 0000 Signed Impressions: Service Date/Time: Monday, April 17, 2017 16:20 - CONCLUSION: 1. No acute cardiopulmonary findings. Luis Pearson MD Carotid Artery Ultrasound 04/17/17 0000 Signed Impressions: Service Date/Time: Monday, April 17, 2017 18:08 - CONCLUSION: Carotid ultrasound within normal limits. No significant plaque or narrowing on either side. Bryant Zuluaga MD Objective Remarks awake and alert, NAD anicteric lungs clear regular rhythm abdomen soft, nontender extremities no edema neuro exam-unremarkable gait steady Date of Removal: Apr 18, 2017 A/P Assessment and Plan 61-year-old male presenting with Decrease in mental status, syncopal episode with reported slurring of speech.- possible TIA. - RESOLved MRI/MRA unremarkable. ECho novalvular deformity. Carotid US- no significant stenosis EEG no epileptiform activity ASA Hypertensive urgency.- improved Will continue on Cozaar 100 mg daily. Will continue on Toprol-XL 50 mg daily with hold parameters. Add CCB Procardia 30 mf XL daily DC hydrochlorothiazide for now with severe hypokalemia. CXR reviewed by me- unremarkable. 12-lead EKG reviewed-no acute ST-T wave changes Severe Hypokalemia - improved Hypophosphatemia- replaced- History of borderline diabetes mellitus. A1C 7.0 as OP- was on Metformin at one point but had adverse GI reactions STarted Actos 15 mg po daily and monitor blood sugars-- good readings per and patient they have supplies. d./w them goals OP ff up with PCP HYpertriglyceridemia -dietitian- cousnelling History of neuropathy etiology-likely DM nephropathy Will continue on Neurontin 3 times a day. History of hiatal hernia. Continue on Protonix 40 mg daily. History of allergic rhinitis. Continue on Flonase nasal spray 2 sprays to each nostril daily. History of SHIRA- instruct family to bring in his BiPAP machine for use t Lovenox for DVT prophylaxis. DC today OP ff up with PCP in [place] OP ff up with Neurology in [place]- Dr. Aguilar told them that he will give them a neurologist to ff up with there Richard Fisher MD Apr 20, 2017 12:26
--- NOTE | 2017-04-20 12:28 | HHI.DS ---
Discharge Summary Admission Date Apr 17, 2017 at 14:56 Discharge Date: Apr 20, 2017 Admitting Diagnosis TIA, hypokalemia (1) Hypertensive urgency ICD Code: I16.0 Diagnosis: Principal (2) TIA (transient ischemic attack) ICD Code: G45.9 Diagnosis: Principal (3) Hypokalemia ICD Code: E87.6 Diagnosis: Secondary Procedures none Brief History - From Admission Patient is a 61-year-old right handed male with history of hypertension, borderline diabetes mellitus his, history of obstructive sleep apnea who was brought in by [facility] apparently son-in-law called [facility]. Patient was sitting when the patient was noted by family to be unresponsive. This was noted since family states that he was dozing off to sleep and then his legs were crossed. Knee dropped suddenly dropped and patient slipped down from his chair. shook him with no responded. This lasted for a couple of minutes. Then patient spontaneously woke up and started states "I can breath"" . There was no seizure episodes noted. But family reported some slurring of speech. Patient denies any fever chills headache nausea vomiting prior to or after the this incident. Patient was called in as a stroke alert and was promptly seen by Dr. Aguilar from neurology service. Initial head CT was negative. Patient is awake alert oriented 3 now and amnestic of event. Patient admitted for further evaluation and management. CBC/BMP: 04/17/17 1306 04/19/17 0803 Significant Findings Laboratory Tests Test 04/17/17 04/18/17 04/19/17 13:06 06:42 08:03 Red Blood Count 4.40 MIL/MM3 (4.50-5.90) Hematocrit 37.7 % (39.0-51.0) Bedside Hematocrit 37.0 % (38.0-51.0) Monocytes (%) (Auto) 8.1 % (0.0-8.0) Bedside Potassium 2.9 MMOL/L (3.5-4.9) Potassium Level 2.9 MEQ/L (3.5-5.1) Estimat Glomerular Filtration 78 ML/MIN (>89) Rate Bedside Glucose 192 MG/DL (60-95) Random Glucose 180 MG/DL 138 MG/DL 153 MG/DL (74-106) (74-106) (74-106) Hemoglobin A1c 7.0 % (4.3-6.0) Phosphorus Level 1.3 MG/DL (2.5-4.9) Troponin I LESS THAN 0.02 NG/ML (0.02-0.05) Calcium Level 7.8 MG/DL (8.5-10.1) Total Protein 6.2 GM/DL (6.4-8.2) Albumin 3.2 GM/DL (3.4-5.0) Triglycerides Level 163 MG/DL (42-150) HDL Cholesterol 35.6 MG/DL (40.0-60.0) Imaging Last Impressions Orbit X-Ray 04/18/17 0000 Signed Impressions: Service Date/Time: Tuesday, April 18, 2017 10:15 - CONCLUSION: 1. No metallic foreign bodies identified. Patient is cleared for MRI. Luis Pearson MD Head Magnetic Resonance Angiography 04/18/17 0000 Signed Impressions: Service Date/Time: Tuesday, April 18, 2017 18:48 - CONCLUSION: Mild and short segment narrowing of the right posterior cerebral artery as above. Otherwise normal. Bryant Zuluaga MD Brain MRI 04/18/17 0000 Signed Impressions: Service Date/Time: Tuesday, April 18, 2017 10:52 - CONCLUSION: Normal examination. No evidence of acute infarct, hemorrhage, mass or edema. Ramiro Salmon MD Head CT 04/17/17 0000 Signed Impressions: Service Date/Time: Monday, April 17, 2017 13:11 - CONCLUSION: No acute disease. Honorio Mathew MD Chest X-Ray 04/17/17 0000 Signed Impressions: Service Date/Time: Monday, April 17, 2017 16:20 - CONCLUSION: 1. No acute cardiopulmonary findings. Luis Pearson MD Carotid Artery Ultrasound 04/17/17 0000 Signed Impressions: Service Date/Time: Monday, April 17, 2017 18:08 - CONCLUSION: Carotid ultrasound within normal limits. No significant plaque or narrowing on either side. Bryant Zuluaga MD PE at Discharge awake and alert, NAD anicteric lungs clear regular rhythm abdomen soft, nontender extremities no edema neuro exam-unremarkable gait steady Pt update on day of discharge speech spontaneous, no complains, gait steady Hospital Course 61-year-old male presenting with Decrease in mental status, syncopal episode with reported slurring of speech.- possible TIA. - RESOLved MRI/MRA unremarkable. ECho novalvular deformity. Carotid US- no significant stenosis EEG no epileptiform activity ASA Hypertensive urgency.- improved Will continue on Cozaar 100 mg daily. Will continue on Toprol-XL 50 mg daily with hold parameters. Add CCB Procardia 30 mf XL daily DC hydrochlorothiazide for now with severe hypokalemia. CXR reviewed by me- unremarkable. 12-lead EKG reviewed-no acute ST-T wave changes Severe Hypokalemia - improved Hypophosphatemia- replaced- History of borderline diabetes mellitus. A1C 7.0 as OP- was on Metformin at one point but had adverse GI reactions STarted Actos 15 mg po daily and monitor blood sugars-- good readings per and patient they have supplies. d./w them goals OP ff up with PCP HYpertriglyceridemia -dietitian- cousnelling History of neuropathy etiology-likely DM nephropathy Will continue on Neurontin 3 times a day. History of hiatal hernia. Continue on Protonix 40 mg daily. History of allergic rhinitis. Continue on Flonase nasal spray 2 sprays to each nostril daily. History of SHIRA- instruct family to bring in his BiPAP machine for use t Lovenox for DVT prophylaxis. DC today OP ff up with PCP in [place] OP ff up with Neurology in [place]- Dr. Aguilar told them that he will give them a neurologist to ff up with there Pt Condition on Discharge: Stable Discharge Disposition: Discharge Home Discharge Time: <= 30 minutes Discharge Instructions DIET: Follow Instructions for: Heart Healthy Diet, Diabetic Diet Speech Therapy-Diet Recommends: Regular Activities you can perform: Weight Bearing as Kisha Activities to Avoid: Strenuous Activity Follow up Referrals: Neurology - 1 Week with Toby Aguilar MD PCP Follow-up - 3-5 Days with PCP New Orders: BASIC METABOLIC PROF - 04/21/17 New Medications: Aspirin (Aspirin Low Strength) 81 Mg Chew 81 MG CHEW DAILY TIA Days 30 Ref 10 EA Fluticasone Nasal [place] (Fluticasone Nasal [place]) 50 Mcg/Act Naspr 2 SPRAY NASAL DAILY rhini Days 30 BOTTLE Gabapentin (Neurontin) 400 Mg Cap 400 MG PO TID neuropathy Days 30 CAP Losartan (Cozaar) 50 Mg Tab 100 MG PO DAILY HTN Days 30 TAB Magnesium Oxide (Magnesium Oxide) 241.3 Mg Tab 400 MG PO Q12HR elect Days 5 TAB Nifedipine ER 24 HR (Nifedipine ER 24 HR) 30 Mg Tab 30 MG PO DAILY HTN Days 30 TAB Pioglitazone (Actos) 15 Mg Tab 15 MG PO DAILYAC DM #30 TAB Potassium Chloride Microencaps (Potassium Chloride Microencaps) 20 Meq Tab 20 MEQ PO DAILY elec #10 TAB Continued Medications: Amitriptyline (Amitriptyline) 25 Mg Tab 25 MG PO HS TAB Metoprolol Succinate ER 24 HR (Metoprolol Succinate ER 24 HR) 50 Mg Tab 50 MG PO DAILY #30 Ref 0 TAB Pantoprazole (Pantoprazole) 40 Mg Tab 40 MG PO DAILY Reflux #30 Ref 0 TAB Venlafaxine ER 24 HR (Venlafaxine ER 24 HR) 37.5 Mg Tab 37.5 MG PO BID #30 Ref 0 TAB Discontinued Medications: Gabapentin (Gabapentin) 400 Mg Cap 400 CAP PO HS #30 Ref 0 CAP Losartan-Hydrochlorothiazide (Losartan-Hydrochlorothiazide) 100-25 Mg Tab 1 TAB PO DAILY Blood Pressure Management #30 Ref 0 TAB Richard Fisher MD Apr 20, 2017 12:28
--- NOTE | 2017-04-20 16:44 | HM ---
Date Performed: 04/19/2017 Time Performed: 18:35:00 HOOKUP DATE: 04/19/17 06:35:00 PM Wed ANALYSIS START TIME: 04/19/2017 6:40:00 PM ANALYSIS END TIME: 04/20/2017 6:15:56 PM PATIENT AGE: 61 PATIENT HEIGHT PATIENT WEIGHT DRUG LIST PATIENT DIAGNOSIS TEST NARRATIVE: The patient's average heart rate was 61 BPM. No episodes of tachycardia wer e noted. Heart rates less than 50 BPM were noted 9% of the time. No pauses exceeding 2.0 seconds were noted. 1 ventricular ectopics, which represented < 1% of the total beat count, were noted. The highest ventricular ectopic frequency occurred from 10:00 PM to 11:00 PM Wed. During this time 1 VE(s) occurred. Ventricular ectopics were observed as 1 isolated beat(s) only. No couplets or run s were noted. 166 supraventricular ectopics, which represented < 1% of the total beat count, were noted. The highest supraventricular ectopic frequency occurred from 02:00 PM to 03:00 PM [facility] 16 SVE(s) occurred. No episodes of ST depression (defined as -1.0 mm or more) were n oted in channel 1. No episodes of ST depression (defined as -1.0 mm or more) were noted in channel 2 . No episodes of ST depression (defined as -1.0 mm or more) were noted in channel 3. TEST INTERPRETATION: 24 Hour Holter Monitor - Dr. Shashi Hernandes Patient was monitored for 23 h ours and 36 minutes. Patient was in normal Sinus rhythm , with an average heart rate of 61 beats per minute. Patient had periods of sinus Bradycardia in the a.m. at 44 beats per minute. patient had a maximum heart rate of 89 beats per minute. Patient had o ne premature ventricular contraction, and 162 premature atrial contractions. Signed by : Shashi Hernandes
== END 2017-04-20 15:08 | disposition home or self-care (01) | DRG 69 ==
LOC: EDBD → NEPC 12:55 → NEDA 14:56 → N05B 17:28
PROVIDERS: ADMIT Internal Medicine; ATTEND Internal Medicine
DX: G45.9 Transient cerebral ischemic attack, unspecified (principal); E11.40 Type 2 diabetes mellitus with diabetic neuropathy, unspecified; G81.94 Hemiplegia, unspecified affecting left nondominant side; E83.39 Other disorders of phosphorus metabolism; I10 Essential (primary) hypertension; E87.6 Hypokalemia; G47.33 Obstructive sleep apnea (adult) (pediatric); R47.81 Slurred speech; I16.0 Hypertensive urgency; K44.9 Diaphragmatic hernia without obstruction or gangrene; J30.9 Allergic rhinitis, unspecified; E78.1 Pure hyperglyceridemia
CPT/HCPCS: 70250; 70450; 70544; 70551; 71010; 80048; 80053; 80061; 80307; 81001; 82435; 82550; 82565; 82947; 82948; 83036; 83735; 84100; 84132; 84295; 84443; 84484; 84520; 85025; 85384; 85610; 85730; 86850; 86900; 86901; 93005; 93225; 93226; 93306; 93880; 95819; 96360; J2060; J3480; J7030; J7050; P9612